=== PATIENT | male | born 1985 | race Caucasian/White ===

== ENCOUNTER 2016-03-25 17:04 | Emergency (ER) | payer BC ==
[2016-03-25 17:17] VITALS: BP 124/76
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
== END 2016-03-25 17:31 | disposition home or self-care (01) ==
LOC: UCCORT 17:04
DX: B34.9 Viral infection, unspecified (principal)
CPT/HCPCS: 99211; G0463

== ENCOUNTER 2016-12-29 15:17 | Emergency (ER) | payer BC ==
--- NOTE | 2016-12-29 15:51 | UC ---
Progress - Progress Note Progress Note: 31 y/o male presents to the urgent care c/o anxiety and depression. However the patient while in the waiting room decided to leave w/o being seen. The Nurse Gypsy Salmon spoke to the patient to convince him to be seen. Then she asked me if I can try to convince him to be seen. I spoke to Pt he states he has been feeling anxious since yesterday. He wanted to see if he can be referred to a counselor or Psychologist. He states he has been having a lot of stress at work and he has some personal problems he doesn't know how to handle them. He states he doesn't want to wait and he feels he can return some other day since it is not an emergency. I spoke to him for few minutes and advised him that we can see him immediately. He declined. He denied any suicidal or homicidal thoughts or hallucination. No HX of depression of anxiety. Pt continue to decline to be seen and left the clinic ambulating , hemodinamically stable A&OX3
== END 2016-12-29 15:56 | disposition left against medical advice (07) ==
LOC: UCCORT 15:17
DX: F41.8 Other specified anxiety disorders (principal); Z53.21 Procedure and treatment not carried out due to patient leaving prior to being seen by health care provider

== ENCOUNTER → 2017-06-01 18:28 | Emergency (ER) | payer SELFPAY | END | disposition home or self-care (01) | LOC: OHCORT 18:28 | DX: Z00.00 Encounter for general adult medical examination without abnormal findings (principal) ==

== ENCOUNTER 2018-05-12 17:32 | Emergency (ER) | payer OTHER ==
[2018-05-12 17:52] VITALS: BP 123/76
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
== END 2018-05-12 18:16 | disposition home or self-care (01) ==
LOC: UCCORT 17:32
DX: B34.9 Viral infection, unspecified (principal); F17.210 Nicotine dependence, cigarettes, uncomplicated; R51 Headache; R09.81 Nasal congestion
CPT/HCPCS: 99211; G0463

== ENCOUNTER 2018-07-07 16:58 | Emergency (ER) | payer OTHER ==
[2018-07-07 18:17] VITALS: BP 130/80
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
== END 2018-07-07 19:13 | disposition home or self-care (01) ==
LOC: UCCORT 16:58
DX: S00.93XA Contusion of unspecified part of head, initial encounter (principal); F17.210 Nicotine dependence, cigarettes, uncomplicated; W22.8XXA Striking against or struck by other objects, initial encounter; Y92.9 Unspecified place or not applicable
CPT/HCPCS: 99211; G0463

== ENCOUNTER 2018-11-24 20:19 | Emergency (ER) | payer OTHER ==
[2018-11-24 21:10] VITALS: BP 125/75
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
== END 2018-11-24 21:52 | disposition home or self-care (01) ==
LOC: UCCORT 20:19
DX: R11.0 Nausea (principal); F17.210 Nicotine dependence, cigarettes, uncomplicated
CPT/HCPCS: 99211; G0463

== ENCOUNTER 2019-01-18 17:44 | Emergency (ER) | payer OTHER ==
[2019-01-18 18:31] VITALS: BP 142/86
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
== END 2019-01-18 18:43 | disposition home or self-care (01) ==
LOC: UCCORT 17:44
DX: K52.9 Noninfective gastroenteritis and colitis, unspecified (principal); F17.210 Nicotine dependence, cigarettes, uncomplicated
CPT/HCPCS: 99211; G0463